=== PATIENT | male | born 1985 | race Caucasian/White ===

== ENCOUNTER 2019-12-08 14:04 | Emergency (ER) | payer MEDICARE, SELFPAY ==
[2019-12-08 14:08] VITALS: BP 136/90; PULSE 114; RESP 14; TEMP 36.7; O2SAT 97; BMI 28.8
--- NOTE | 2019-12-08 14:30 | XRR_ITS ---
PROCEDURE INFORMATION: Exam: XR Chest, 1 View Exam date and time: 12/08/2019 2:57 PM Age: 34 years old Clinical indication: Shortness of breath; Additional info: SOB TECHNIQUE: Imaging protocol: XR of the chest Views: 1 view. COMPARISON: No relevant prior studies available. FINDINGS: Lungs: Unremarkable. No consolidation. Pleural space: Unremarkable. No pleural effusion. No pneumothorax. Heart/Mediastinum: Unremarkable. No cardiomegaly. Bones/joints: A metallic right shoulder arthroplasty is present in good position. XR/XR chest 1V portable [id number] IMPRESSION: 1. No acute findings. 2. Metallic arthroplasty right shoulder in good position
--- NOTE | 2019-12-08 14:30 | XRR_ITS ---
PROCEDURE INFORMATION: Exam: XR Soft Tissue Neck Exam date and time: 12/08/2019 2:32 PM Age: 34 years old Clinical indication: Dyspnea / difficulty breathing; Additional info: SOB TECHNIQUE: Imaging protocol: XR of the soft tissues of the neck. COMPARISON: No relevant prior studies available. FINDINGS: Airway: Normal. No abnormal narrowing. Soft tissues: Normal. Normal epiglottis. Bones/joints: No acute bony abnormality. There is reversal of lordosis XR/XR soft tissue neck [id number] IMPRESSION: No acute findings.
--- NOTE | 2019-12-08 15:10 | W.ED.SOB ---
HPI - SOB/Dyspnea General: Chief Complaint: Airway/Esophagus Foreign Body Stated Complaint: potential allergic reaction, throat issues Time Seen by Provider: 12/08/19 14:12 History of Present Illness: HPI Narrative: 34-year-old male, reports trouble breathing, and feeling like his throat is tight for the last 4 hours or so. No known allergen exposure. He states he has been moving. He denies, though, burning debris, or significant dust exposure. He states he is better now than he was. He did not take any antihistamines prior to arrival. He did, though, use an inhaler MD elicited complaint: shortness of breath Pertinent past history: other Onset (ago): hour(s) (4) Context: other Timing: constant and improved Severity: moderate Exacerbating factors: nothing Relieving factors: nothing Known history of: asthma Associated symptoms: Deny abdominal pain, chest pain, dizziness, fever(s), nausea, palpitations or vomiting Review of Systems Const: Denies: fever(s) or chills Eyes: Denies: change in vision ENMT: Reports: odynophagia; Denies: uvular edema, swelling of lips/tongue, epistaxis or sinus pain Card: Denies: chest pain, palpitations or irregular heart rhythm Resp: Reports: dyspnea and non-productive cough; Denies: productive cough or wheezing GI: Denies: abdominal pain, nausea or vomiting : Denies: difficulty urinating or hematuria Musc: Denies: neck pain or back pain Skin/Breast: Reports: pruritus; Denies: rash or erythema Neuro: Denies: headache(s), dizziness or vertigo Psych: Denies: anxiety Physical Exam Const: GENERAL APPEARANCE: well developed ORIENTATION/CONSCIOUSNESS: Yes oriented to person, Yes oriented to place and Yes oriented to time HENMT: COMMON NORMALS: normocephalic, external ears normal and Normal external nose present HEAD & SCALP: normocephalic FACE & SINUS: face symmetric and erythema; no edema NOSE: Normal external nose present and No nasal discharge present EXTERNAL EAR: Yes external ears normal MOUTH: tongue normal TEETH & GINGIVA: no abnormal tooth and associated gingiva THROAT: uvula midline; no peritonsillar mass, uvula not laterally displaced and no uvular edema Eye: COMMON NORMALS: Equal, round and reactive pupils present, EOMs intact bilaterally and conjunctivae normal EYELID: eyelids normal CONJUNCTIVA: Yes conjunctivae normal PUPIL: Yes Equal, round and reactive pupils present Neck/C-Spine: COMMON NORMALS: full ROM GENERAL: No tracheal deviation Chest: COMMONS NORMALS: normal inspection of the chest CHEST: No tenderness Resp: COMMON NORMALS: clear to auscultation bilaterally EFFORT & INSPECTION: No tachypneic, No respiratory distress, No retractions, No uses accessory muscles and No tracheal deviation AUSCULTATION: clear to auscultation bilaterally, no rhonchi, no wheezes and lung sounds not diminished Cardio: COMMON NORMALS: regular rate and regular rhythm RATE: regular rate RHYTHM: regular rhythm HEART SOUNDS: no murmurs PERIPHERAL PULSES: radial pulses present GI: INSPECTION: No abdominal distension AUSCULTATION: No Hyperactive bowel sounds present and No Hypoactive bowel sounds present PALPATION: No Guarding due to palpation present (GI) Neuro: SENSORIUM/ORIENTATION: Yes oriented to person, Yes oriented to place and Yes oriented to time Psych: COMMON NORMALS: mental status grossly normal Skin: NARRATIVE SKIN EXAM: Mild facial redness. No swelling. No urticaria Course Vital Signs: Vital signs: Vital Signs Temperature 98.1 F 12/08/19 14:08 Pulse Rate 72 12/08/19 16:18 Respiratory Rate 18 12/08/19 16:18 Blood Pressure 133/64 12/08/19 16:18 Pulse Oximetry 98 12/08/19 16:18 MDM - SOB/Dyspnea MDM Narrative: Medical decision making narrative: Both itch and throat are significantly improved. Patient would like to go. His x-rays are normal. Lab Data: Labs: Lab Results 12/08/19 12/08/19 Range/Units 15:16 15:16 WBC 8.4 (4.0-10.0) 10^3/ uL RBC 3.97 L (4.1-5.3) 10^6/u L Hgb 13.8 (11.7-16.6) g/dL Hct 41.6 L (42.0-52.0) % MCV 104.8 H (80-94) fL MCH 34.8 H (28.0-34.0) pg MCHC 33.2 (30.0-36.0) g/dL RDW 12.5 (12.1-15.1) % Plt Count 207 (130-400) 10^3/c mm MPV 10.9 H (7.4-10.4) fL Neut % (Auto) 57.4 % Lymph % (Auto) 28.7 % [place] % (Auto) 8.5 % Eos % (Auto) 4.4 % Baso % (Auto) 0.8 % Neut # (Auto) 4.80 (1.8-7.7) 10^3/u L Lymph # (Auto) 2.4 (0.8-4.8) 10^3/u L [place] # (Auto) 0.7 (0.2-0.9) 10^3/u L Eos # (Auto) 0.4 (0.0-0.8) 10^3/u L Baso # (Auto) 0.1 (0.0-0.1) 10^3/u L Nucleated RBC % (a uto) 0 % Nucleated RBCs # 0.0 /100WBC Sodium Cancelled Potassium Cancelled Chloride Cancelled Carbon Dioxide Cancelled Anion Gap Cancelled BUN Cancelled Creatinine Cancelled GFR Calculation Cancelled Glucose Cancelled Calculated Osmolal ity Cancelled Calcium Cancelled Total Bilirubin Cancelled AST Cancelled ALT Cancelled Alkaline Phosphata se Cancelled Total Protein Cancelled Albumin Cancelled Globulin Cancelled Discharge Plan Discharge Patient Disposition: Home Clinical Impression: Allergic reaction Qualifiers: Encounter type: initial encounter Qualified Code(s): T78.40XA - Allergy, unspecified, initial encounter Condition: Stable Prescriptions: New Medrol (Joe) 4 mg tablets,dose pack See Rx Instructions .ROUTE .COMPLEX Qty: 21 RF: 0 Benadryl 25 mg capsule 25 mg PO Q6H PRN (Reason: allergic reaction) Qty: 30 RF: 0 No Action bupropion HCl 150 mg tablet sustained-release 12 hr See Rx Instructions .ROUTE .COMPLEX RF: 0 ibuprofen 800 mg Tablet 800 mg PO TID PRN (Reason: Pain) RF: 0 atenolol 100 mg tablet See Rx Instructions .ROUTE .COMPLEX RF: 0 levetiracetam 500 mg tablet 500 mg PO BID RF: 0 [place] 10-325 mg Tablet 2 tab PO QID MDD 8 tabs PRN (Reason: Pain) RF: 0 carbamazepine 400 mg tablet extended release 12 hr 400 mg PO BID RF: 0 buspirone 30 mg tablet See Rx Instructions .ROUTE .COMPLEX RF: 0 gabapentin 300 mg Capsule 900 mg PO TID RF: 0 hydrochlorothiazide 25 mg tablet See Rx Instructions .ROUTE .COMPLEX RF: 0 testosterone cypionate 200 mg/mL oil 200 mg IM Q30D RF: 0 ProAir HFA 90 mcg/actuation Hfa Aerosol Inhaler 2 puff INHALATION Q4H PRN (Reason: Shortness Of Breath) RF: 0 Discharge Orders: Discharge Order (Routine); Ordered 12/08/19 Ordered By: Kenneth Mitchell Discharge Diet: Advance as tolerated Discharge Activity: Increase activity as tolerated Patient Instructions: Allergic Reaction Activity Restrictions/Additional Instructions: Start blister pack of medicine tomorrow. Use Benadryl today, at least 2 more doses. Taper off the Benadryl as symptoms improve. Return for worsening shortness of breath, throat tightening, lip or tongue swelling, other concerning symptoms. Discharge Date/Time: 12/08/19 16:23 Coding Level of Care Code ED [employer] for [place] Fwd Exam Comprehensive
[2019-12-08 15:20] LABS: Basophils # 0.1 10^3/uL (0.0-0.1); Basophils % 0.8 %; Eosinophils # 0.4 10^3/uL (0.0-0.8); Eosinophils % 4.4 %; Hematocrit 41.6 % (42.0-52.0); Hemoglobin 13.8 g/dL (11.7-16.6); Lymphocytes # 2.4 10^3/uL (0.8-4.8); Lymphocytes % 28.7 %; Mean Corpuscular HGB Conc 33.2 g/dL (30.0-36.0); Mean Corpuscular Hemoglobin 34.8 pg (28.0-34.0); Mean Corpuscular Volume 104.8 fL (80-94); Mean Platelet Volume 10.9 fL (7.4-10.4); Monocytes # 0.7 10^3/uL (0.2-0.9); Monocytes % 8.5 %; Neutrophils % 57.4 %; Nucleated Red Blood Cells % 0 %; Platelet Count 207 10^3/cmm (130-400); Red Blood Count 3.97 10^6/uL (4.1-5.3); Red Cell Distribution Width 12.5 % (12.1-15.1); White Blood Count 8.4 10^3/uL (4.0-10.0)
[2019-12-08] MEDS: dexamethasone 4 mg/mL INJ 10 MG IVP (15:20)
[2019-12-08] MEDS: diphenhydrAMINE 50 mg/mL SDV 1mL IVP (15:20)
[2019-12-08] MEDS: famotidine 20 mg/2 mL INJ 40 MG IVP (15:21)
[2019-12-08 16:18] VITALS: BP 133/64; PULSE 72; RESP 18; O2SAT 98
== END 2019-12-08 16:23 | disposition home or self-care (01) ==
PROVIDERS: Emergency Provider Emergency Medicine
DX: T78.40XA Allergy, unspecified, initial encounter (principal)
CPT/HCPCS: 12345; 70360; 71045; 85025; 96374; 96375; 96376; 99281; 99283; J1100; J1200; J3490

== ENCOUNTER 2020-02-08 20:59 | Emergency (ER) | payer MEDICARE, SELFPAY ==
[2020-02-08 21:09] VITALS: BP 117/69; PULSE 97; RESP 20; TEMP 36.7; O2SAT 97; BMI 28.8
--- NOTE | 2020-02-08 21:37 | W.ED.COVID ---
HPI - COVID General: Chief Complaint: COVID symptoms Stated Complaint: redbumps all over/SOB/nausea/vomiting/muscle aches Time Seen by Provider: 02/08/20 21:36 Source: patient Mode of arrival: ambulatory Limitations: no limitations Triage information: No fever, cough or shortness of breath. No known COVID + exposure last 14 days History of Present Illness: HPI Narrative: 34-year-old male patient comes in today with increasing use of his inhaler with some wheezing. Patient also reports some itchiness to the skin with pustules. Patient noticed increasing number of pustules over the last couple days. Patient appears well. Patient appears no acute distress. COVID Results: SARS-CoV-2 Antigen (Rapid) Negative (Negative) 02/08/20 21:24 02/08/20 Review of Systems General: Reports: 10 or more systems reviewed and unremarkable except in HPI and below Skin/Breast: Reports: new lesions Physical Exam Const: COMMON NORMALS: no acute distress and patient oriented x3 GENERAL APPEARANCE: cooperative HENMT: COMMON NORMALS: normocephalic, TM's normal bilaterally and Normal external nose present HEAD & SCALP: normal to inspection and normocephalic NOSE: Normal external nose present TYMPANIC MEMBRANE: TM's normal bilaterally MOUTH: Normal oral and palatal mucosa present THROAT: posterior oropharynx normal Eye: GENERAL EYE: appearance normal, both eyes and all related structures Neck/C-Spine: COMMON NORMALS: full ROM Lymph: LYMPHATIC: no lymphadenopathy noted Chest: COMMONS NORMALS: normal inspection of the chest Resp: COMMON NORMALS: normal respiratory effort EFFORT & INSPECTION: Yes able to speak in complete sentences Cardio: COMMON NORMALS: regular rate and regular rhythm RATE: regular rate RHYTHM: regular rhythm GI: COMMON NORMALS: non-tender : COMMON NORMALS: Yes no CVA tenderness BLADDER/KIDNEY EXAM: Yes no CVA tenderness Back/Pelvis: COMMON NORMALS: no CVA tenderness and thoracic and lumbar spine normal to inspection Extremity: COMMON NORMALS: normal to inspection Neuro: COMMON NORMALS: patient oriented x3 and moves all extremities Psych: COMMON NORMALS: mental status grossly normal and cooperative Skin: NARRATIVE SKIN EXAM: Multiple pustular lesions to the upper body, and in different stages of healing. Course Vital Signs: Vital signs: Vital Signs Temperature 98.0 F 02/08/20 21:09 Pulse Rate 97 02/08/20 21:09 Respiratory Rate 17 02/08/20 21:52 Blood Pressure 138/99 02/08/20 21:52 Pulse Oximetry 97 02/08/20 21:52 MDM - COVID MDM Narrative: Medical decision making narrative: 34-year-old male comes in with cough and a rash. Patient has a follicular rash to the upper torso and back of neck. Lungs are clear to auscultation. Skin is warm and dry. Vital signs are normal. Differential diagnosis includes folliculitis, viral exanthem, exacerbation of asthma, COVID-19. COVID-19 test was negative. Reviewed exam with patient recommended treatment for folliculitis and treatment for exacerbation of asthma. Patient reported understanding agreed to plan. Lab Data: Labs: Lab Results 02/08/20 Range/Units 21:24 SARS-CoV-2 Ag (Rap id) Negative (Negative) COVID Results: SARS-CoV-2 Antigen (Rapid) Negative (Negative) 02/08/20 21:24 02/08/20 Discharge Plan Discharge Patient Disposition: Home Clinical Impression: Folliculitis Asthma exacerbation Qualifiers: Asthma severity: mild Asthma persistence: persistent Qualified Code(s): J45.31 - Mild persistent asthma with (acute) exacerbation Condition: Stable Prescriptions: New doxycycline hyclate 100 mg capsule 100 mg PO BID 10 Days Qty: 20 RF: 0 prednisone 20 mg tablet 20 mg PO BID 5 Days Qty: 10 RF: 0 Discontinued methylprednisolone [Medrol (Joe)] 4 mg tablets,dose pack See Rx Instructions .ROUTE .COMPLEX Qty: 21 RF: 0 No Action bupropion HCl 150 mg tablet sustained-release 12 hr See Rx Instructions .ROUTE .COMPLEX RF: 0 ibuprofen 800 mg Tablet 800 mg PO TID PRN (Reason: Pain) RF: 0 atenolol 100 mg tablet See Rx Instructions .ROUTE .COMPLEX RF: 0 levetiracetam 500 mg tablet 500 mg PO BID RF: 0 [place] 10-325 mg Tablet 2 tab PO QID MDD 8 tabs PRN (Reason: Pain) RF: 0 carbamazepine 400 mg tablet extended release 12 hr 400 mg PO BID RF: 0 buspirone 30 mg tablet See Rx Instructions .ROUTE .COMPLEX RF: 0 gabapentin 300 mg Capsule 900 mg PO TID RF: 0 hydrochlorothiazide 25 mg tablet See Rx Instructions .ROUTE .COMPLEX RF: 0 testosterone cypionate 200 mg/mL oil 200 mg IM Q30D RF: 0 ProAir HFA 90 mcg/actuation Hfa Aerosol Inhaler 2 puff INHALATION Q4H PRN (Reason: Shortness Of Breath) RF: 0 Benadryl 25 mg capsule 25 mg PO Q6H PRN (Reason: allergic reaction) Qty: 30 RF: 0 Discharge Orders: Discharge ED (Routine); Ordered 02/08/20 Ordered By: Lamonte Costa Discharge Diet: Usual diet Discharge Activity: Increase activity as tolerated Patient Instructions: Folliculitis (ED) Activity Restrictions/Additional Instructions: Take medication as directed. Drink plenty of water with medication. Follow-up with primary care for further treatment. Stop smoking. 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
[2020-02-08 21:48] VITALS: O2SAT 98
[2020-02-08 21:52] VITALS: BP 138/99; RESP 17; O2SAT 97
[2020-02-08 22:05] LABS: SARS Covid-2 Antigen Negative (Negative)
[2020-02-08] MEDS: doxycycline 100 mg Tablet PO (22:26)
[2020-02-08] MEDS: predniSONE 20 mg Tablet 40 MG PO (22:26)
[2020-02-08 22:28] VITALS: BP 149/108; PULSE 104; RESP 16; O2SAT 97
== END 2020-02-08 22:27 | disposition home or self-care (01) ==
PROVIDERS: Emergency Medicine; Emergency Provider Nurse Practitioner Family
DX: J45.31 Mild persistent asthma with (acute) exacerbation (principal); L73.9 Follicular disorder, unspecified
CPT/HCPCS: 12345; 87426; 99281; 99283; J7512

== ENCOUNTER 2020-07-05 09:56 | Inpatient (IN) | payer MEDICARE, SELFPAY ==
[2020-07-05 09:58] VITALS: BP 148/93; PULSE 81; RESP 15; TEMP 36.3; O2SAT 97; BMI 27.2
--- NOTE | 2020-07-05 10:23 | W.ED.PSYCH ---
HPI - Psych General: Chief Complaint: Psychiatric Symptoms Stated Complaint: 96 hour hold Time Seen by Provider: 07/05/20 10:00 History of Present Illness: HPI Narrative: 35-year-old male brought into the ER by [facility]. He was evidently held [facility] related to intoxication and his family wrote affidavits have been 96 remote cars sometime this morning. Affidavits do not timestamp but they are dated for today. Patient responds he is uncertain of what happened or why this family was trying to have him 96. He says he cannot recall any of the behaviors at the site when I mentioned a few of the things affidavits he states he has no recollection of it. He is very agreeable and cooperative. He denies having been on any medications for anxiety or depression or psychosis in the past. He denies previous hospitalizations for mental health related issues or previous suicide attempts. In the affidavit there is a mention that the patient has had increasing problems with his progressing since his son committed suicide in October.. MD complaint: suicidal ideation and altered mental status Onset (ago): month(s) Duration: intermittent Exacerbating factors: alcohol Context: recent alcohol abuse Associated psychiatric symptoms: suicidal ideation, homicidal ideation, auditory hallucinations and visual hallucinations Associated symptoms: Reports auditory hallucinations, visual hallucinations, delusions, homicidal ideation and suicidal ideation Treatments prior to arrival: placed on mental health hold Review of Systems Const: Denies: fever(s), chills, body aches, change in appetite, fatigue or malaise ENMT: Denies: throat pain, ear or mastoid pain, nasal discharge or nasal congestion Card: Denies: chest pain, edema, dyspnea on exertion or orthopnea Resp: Denies: dyspnea, productive cough or non-productive cough GI: Denies: abdominal pain, nausea, vomiting, hematemesis, coffee ground emesis, diarrhea, constipation, bloating, hematochezia or melena : Denies: flank pain, dysuria, urinary frequency or urinary urgency Skin/Breast: Denies: rash or pruritus Psych: Reports: visual hallucinations, auditory hallucinations, suicidal ideation, homicidal ideation and other (Positive review of symptoms regarding psych per affidavit) Physical Exam Const: COMMON NORMALS: no acute distress GENERAL APPEARANCE: cooperative and comfortable ORIENTATION/CONSCIOUSNESS: Yes awake, Yes oriented to person, Yes oriented to place and Yes oriented to time HENMT: COMMON NORMALS: normocephalic, atraumatic and hearing grossly normal bilaterally HEAD & SCALP: normocephalic and atraumatic Neck/C-Spine: COMMON NORMALS: no JVD Resp: COMMON NORMALS: normal respiratory effort, No retractions, No use of accessory muscles and clear to auscultation bilaterally AUSCULTATION: clear to auscultation bilaterally Cardio: COMMON NORMALS: no JVD, regular rate, regular rhythm and No murmurs present (Cardio) RATE: regular rate RHYTHM: regular rhythm Neuro: SENSORIUM/ORIENTATION: Yes oriented to person, Yes oriented to place and Yes oriented to time Psych: THOUGHT CONTENT: Yes delusions Skin: COMMON NORMALS: no rashes or lesions noted GENERAL SKIN EXAM: no rashes or lesions noted Course Vital Signs: Vital signs: Vital Signs Temperature 98.6 F 07/05/20 11:04 Pulse Rate 70 07/05/20 11:04 Respiratory Rate 17 07/05/20 11:04 Blood Pressure 154/102 07/05/20 11:04 Pulse Oximetry 99 07/05/20 11:04 MDM - Psych MDM Narrative: Medical decision making narrative: Slava with Dr. 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
[2020-07-05 10:56] LABS: Basophils % 0.6 %; Eosinophils # 0.1 10^3/uL (0.0-0.8); Hematocrit 46.4 % (42.0-52.0); Hemoglobin 15.4 g/dL (11.7-16.6); Lymphocytes # 1.4 10^3/uL (0.8-4.8); Lymphocytes % 20.3 %; Mean Corpuscular HGB Conc 33.2 g/dL (30.0-36.0); Mean Corpuscular Hemoglobin 33.6 pg (28.0-34.0); Mean Corpuscular Volume 101.3 fL (80-94); Mean Platelet Volume 10.3 fL (7.4-10.4); Monocytes # 0.4 10^3/uL (0.2-0.9); Monocytes % 5.3 %; Neutrophils # 5.08 10^3/uL (1.8-7.7); Neutrophils % 72.5 %; Nucleated Red Blood Cells % 0 %; Platelet Count 261 10^3/cmm (130-400); Red Blood Count 4.58 10^6/uL (4.1-5.3); Red Cell Distribution Width 12.2 % (12.1-15.1)
[2020-07-05 11:03] LABS: Add Urine Microscopic? NO; Charge for UA Resulting for Rev
[2020-07-05 11:04] VITALS: BP 154/102; PULSE 70; RESP 17; TEMP 37; O2SAT 99
[2020-07-05 11:10] LABS: Bilirubin Urine Neg (Negative); Blood Urine Neg (Negative); Glucose Urine UA Norm (Normal); Ketones Urine Negative (Negative); Leukocyte Esterase Urine Negative (Negative); Nitrate Urine Negative (Negative); Protein Urine Neg (Negative); Specific Gravity, Urine 1.015 (1.005-1.030); Urine Appearance Clear (CLEAR); Urine Color Yellow (Yellow); Urobilinogen Urine 1 mg/dL (Negative); pH Urine 5 (5-7)
[2020-07-05 11:11] LABS: Alanine Aminotransferase 14 U/L (0-41); Albumin Level 4.4 g/dL (3.5-5.2); Alkaline Phosphatase 93 IU/L (40-130); Aspartate Amino Transferase 20 U/L (0-40); Blood Urea Nitrogen 9 mg/dL (6-20); Calcium 8.9 mg/dL (8.5-10.5); Carbon Dioxide 26 mmol/L (22-29); Chloride 106 mmol/L (98-107); Globulin 2.8 g/dL (1.3-4.6); Glomerular Filtration Rate 108.8 mL/min (90-130); Glucose 88 mg/dL (65-115); Osmolality Calculated 292 mOsm/kg (285-295); Sodium 142 mmol/L (136-145); Total Bilirubin 0.5 mg/dL (0.15-1.2); Total Protein 7.2 g/dL (6.6-8.7)
[2020-07-05 11:23] LABS: Acetaminophen < 5.0 ug/mL (10-30); Salicylate < 0.3 mg/dL (3-10)
[2020-07-05 11:24] LABS: Anion Gap 14.4 (5-19); Potassium 4.4 mmol/L (3.5-5.1)
[2020-07-05] MEDS: nicotine 21 mg Patch 1 PATCH TRANSDERMA (12:24)
[2020-07-05 14:00] VITALS: BP 150/95; PULSE 73; RESP 16; TEMP 36.8; O2SAT 96
[2020-07-05 19:25] VITALS: BP 147/76; PULSE 74; RESP 18; TEMP 37.6; O2SAT 99
[2020-07-05 20:03] VITALS: PULSE 77; RESP 16; O2SAT 99
[2020-07-05] MEDS: nicotine 2 mg Gum BUCCAL (20:58)
[2020-07-06 06:00] VITALS: BP 151/121; PULSE 78; RESP 18; TEMP 36.6; O2SAT 100
--- NOTE | 2020-07-06 06:21 | PC.NURSE ---
Patient states that he normally has high blood pressure and usually takes Atenolol. Patient states that he hasn't filled it in awhile and cuts it in half because it knocks him out. Nurse was notified of patients high blood pressure.
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
[2020-07-06 07:42] VITALS: PULSE 78; RESP 18; O2SAT 98
[2020-07-06] MEDS: gabapentin 400 mg Capsule 1200 MG PO ×3 (08:06→20:23)
[2020-07-06] MEDS: nicotine 21 mg Patch 1 PATCH TRANSDERMA (08:06)
[2020-07-06 13:52] VITALS: BP 132/89; PULSE 77; RESP 16; TEMP 37; O2SAT 97
[2020-07-06 20:13] VITALS: BP 145/101; PULSE 104; RESP 17; TEMP 37; O2SAT 97
[2020-07-06] MEDS: nicotine 2 mg Gum BUCCAL (21:59)
[2020-07-07 06:00] VITALS: BP 146/80; PULSE 58; RESP 15; TEMP 36.7; O2SAT 99
[2020-07-07] MEDS: nicotine 21 mg Patch 1 PATCH TRANSDERMA (07:45)
[2020-07-07] MEDS: gabapentin 400 mg Capsule 1200 MG PO (08:42)
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
[2020-07-07 14:19] VITALS: BP 146/80; PULSE 58; RESP 15; TEMP 36.7; O2SAT 99
== END 2020-07-07 15:04 | disposition home or self-care (01) | DRG 882 ==
LOC: ER 10:17 → NP 10:35
PROVIDERS: Admitting Provider Psychiatry & Neurology Psychiatry; Emergency Provider Family Medicine; Visit Provider Psychiatry & Neurology Psychiatry
DX: F43.25 Adjustment disorder with mixed disturbance of emotions and conduct (principal); R45.851 Suicidal ideations; F10.10 Alcohol abuse, uncomplicated; F17.210 Nicotine dependence, cigarettes, uncomplicated; Z87.820 Personal history of traumatic brain injury; Z63.8 Other specified problems related to primary support group
CPT/HCPCS: 36415; 80053; 80307; 81003; 85025; 99285

== ENCOUNTER 2020-09-26 01:13 | Emergency (ER) | payer MEDICARE, SELFPAY ==
[2020-09-26 01:23] VITALS: BP 142/94; PULSE 113; RESP 20; TEMP 36.4; O2SAT 97; BMI 29.4
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
[2020-09-26] MEDS: ondansetron 2 mg/ML SDV 2 mL 4 MG IVP (02:04)
[2020-09-26 02:05] VITALS: RESP 18; O2SAT 100
[2020-09-26] MEDS: HYDROmorphone 1 mg/mL INJ 1 mL IVP ×2 (02:05→02:57)
[2020-09-26] MEDS: iohexol 300 mg/mL 100 mL Btl IV (02:23)
[2020-09-26 03:31] VITALS: O2SAT 98
== END 2020-09-26 03:31 | disposition home or self-care (01) ==
PROVIDERS: Emergency Provider Emergency Medicine
DX: S22.41XA Multiple fractures of ribs, right side, initial encounter for closed fracture (principal); S01.81XA Laceration without foreign body of other part of head, initial encounter; V86.55XA Driver of 3- or 4- wheeled all-terrain vehicle (ATV) injured in nontraffic accident, initial encounter
CPT/HCPCS: 12014; 70450; 70486; 71045; 71260; 72125; 73552; 74177; 96374; 96375; 96376; 99284; J1170; J2405; Q9967

== ENCOUNTER 2020-09-26 08:46 | Emergency (ER) | payer MEDICARE, SELFPAY ==
[2020-09-26 08:53] VITALS: BP 141/85; PULSE 112; RESP 19; TEMP 36.9; O2SAT 97
[2020-09-26 08:59] VITALS: BP 141/87; PULSE 110; RESP 19; TEMP 36.9; O2SAT 97
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
[2020-09-26 10:07] VITALS: RESP 18
[2020-09-26] MEDS: oxyCODONE 5 mg IR Tab/Cap PO (10:07)
[2020-09-26 10:29] VITALS: BP 133/96; PULSE 104; RESP 18; O2SAT 100
[2020-09-26 11:11] VITALS: BP 133/96; PULSE 104; RESP 18; O2SAT 100
== END 2020-09-26 11:12 | disposition home or self-care (01) ==
PROVIDERS: Emergency Provider Emergency Medicine
DX: Z04.1 Encounter for examination and observation following transport accident (principal); V86.55XA Driver of 3- or 4- wheeled all-terrain vehicle (ATV) injured in nontraffic accident, initial encounter
CPT/HCPCS: 74018; 76882; 99283

== ENCOUNTER 2020-10-30 18:29 | Emergency (ER) | payer MEDICARE, SELFPAY ==
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
[2020-10-30 19:14] VITALS: BP 154/105; PULSE 130; RESP 22; TEMP 37.1; O2SAT 99; BMI 27.9
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
[2020-10-30 20:14] VITALS: BP 146/92; PULSE 116; RESP 22; O2SAT 99
== END 2020-10-30 20:00 | disposition home or self-care (01) ==
PROVIDERS: Emergency Provider Emergency Medicine
DX: S09.8XXA Other specified injuries of head, initial encounter (principal); W19.XXXA Unspecified fall, initial encounter
CPT/HCPCS: 70450; 99282

== ENCOUNTER 2022-12-19 15:16 | Emergency (ER) | payer MEDICARE, SELFPAY ==
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
[2022-12-19 15:25] VITALS: BP 120/74; PULSE 85; O2SAT 97
== END 2022-12-19 15:45 | disposition home or self-care (01) ==
LOC: ER 15:26
PROVIDERS: Emergency Provider Emergency Medicine
DX: Z02.89 Encounter for other administrative examinations (principal)
CPT/HCPCS: 99281

== ENCOUNTER 2023-06-06 01:31 | Emergency (ER) | payer MEDICARE, MEDICAID, SELFPAY ==
[2023-06-06 01:38] VITALS: BP 149/102; PULSE 110; RESP 18; TEMP 36.7; O2SAT 100; BMI 26.6
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
[2023-06-06 02:04] VITALS: BP 144/95; RESP 18; O2SAT 98
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
[2023-06-06 03:14] VITALS: BP 144/95; PULSE 84; RESP 18; O2SAT 94
== END 2023-06-06 03:10 | disposition home or self-care (01) ==
PROVIDERS: Emergency Provider Emergency Medicine
DX: S01.81XA Laceration without foreign body of other part of head, initial encounter (principal); W20.8XXA Other cause of strike by thrown, projected or falling object, initial encounter; S00.03XA Contusion of scalp, initial encounter
CPT/HCPCS: 12011; 70450; 99284

== ENCOUNTER 2024-04-22 23:00 | Emergency (ER) | payer MEDICARE, SELFPAY ==
[2024-04-22 23:16] VITALS: BP 136/94; PULSE 79; RESP 14; TEMP 36.3; O2SAT 97; BMI 24.3
--- NOTE | 2024-04-22 23:34 | XRR_ITS ---
PROCEDURE INFORMATION: Exam: XR Chest Exam date and time: 04/22/2024 11:36 PM Age: 39 years old Clinical indication: Cough and fever; Additional info: Cough, fevers, congestion TECHNIQUE: Imaging protocol: Radiologic exam of the chest. Views: 1 view. COMPARISON: CT chest abdpel w/*[id number] 09/26/2020 2:18 AM FINDINGS: Lungs: No large focal consolidation. Pleural spaces: No large pleural effusion. No distinct pneumothorax. Heart/Mediastinum: Cardiomediastinal silhouette is midline and normal in size. Bones/joints: Status post right shoulder arthroplasty. Degenerative changes of the left shoulder. XR/XR chest 1V portable [id number] IMPRESSION: No large focal consolidation.
--- NOTE | 2024-04-22 23:46 | W.ED.URI ---
HPI - URI/Sore Throat General: Chief Complaint: Upper Respiratory Infection Stated Complaint: Cough\Fever Time Seen by Provider: 04/22/24 23:34 Source: patient Mode of arrival: ambulatory Limitations: no limitations History of Present Illness: Patient is a 39-year-old female presents to ED today stating that he has been sick for 3 weeks. Symptoms include fevers, cough, congestion, diarrhea, sore throat. He was initially diagnosed with pneumonia and placed on doxycycline. He states he finished this medication 3 to 4 days ago. He initially thought he was improving. He has had positive exposure with an individual with influenza A. Patient arrives in no acute distress with stable signs. MD elicited complaint: fever, cough, sore throat and nasal congestion Onset (ago): week(s) Consistency: constant Severity: moderate Description of mucous: clear Able to tolerate fluids by mouth: Yes Exacerbating factors: nothing Relieving factors: nothing Context: sick contacts (influenza A) Associated symptoms: Reports chills, congestion, cough, diarrhea, fever(s), nasal congestion and sore throat; Deny abdominal pain, chest pain, ear or mastoid pain, headache(s), nausea or vomiting Treatments prior to arrival: none Related Data Home Medications ?Medication ?Instructions ?Recorded ?Confirmed albuterol sulfate 90 mcg/actuation 2 puff inhalation Q4H PRN 12/08/19 09/26/20 aerosol inhaler (ProAir HFA) Shortness Of Breath ibuprofen 800 mg tablet 800 mg PO TID PRN Pain 12/08/19 09/26/20 gabapentin 600 mg tablet 1,200 mg PO TID 07/05/20 09/26/20 Kratom Powder 2 tsp PO DAILY 09/26/20 09/26/20 epinephrine 0.3 mg/0.3 mL See Rx Instructions .Route .COMPLEX 09/26/20 09/26/20 injection, auto-injector Previous Rx's ?Medication ?Instructions ?Recorded hydrocodone 5 mg-acetaminophen 325 1 tab PO Q6H PRN pain #14 tabs 09/26/20 mg tablet methocarbamol 750 mg tablet 750 mg PO Q6H PRN spasms #20 tabs 09/26/20 ketorolac 10 mg tablet 10 mg PO TID PRN pain #10 tabs 06/06/23 Allergies Allergy/AdvReac Type Severity Reaction Status Date / Time amoxicillin Allergy ALGY-Hives Verified 04/22/24 23:26 pregabalin (From Lyrica) Allergy ADR-Seizure Verified 04/22/24 23:20 tramadol Allergy ADR-Seizure Verified 04/22/24 23:20 Review of Systems Const: Reports: fever(s), chills, body aches and fatigue Eyes: Denies: eye discomfort, eye discharge or eye redness ENMT: Reports: throat pain, odynophagia, nasal discharge and nasal congestion; Denies: ear or mastoid pain Card: Denies: chest pain, palpitations, irregular heart rhythm, edema, swelling of feet/ankles, lightheadedness, syncope or pre-syncope Resp: Reports: non-productive cough and chest congestion; Denies: dyspnea or wheezing GI: Reports: diarrhea; Denies: abdominal pain, nausea, vomiting, rectal pain or hematochezia Musc: Denies: neck pain, back pain, extremity pain, extremity swelling or joint swelling Skin/Breast: Denies: rash Neuro: Denies: headache(s), numbness in extremities, weakness in extremities, sensory changes or dizziness Physical Exam Const: COMMON NORMALS: no acute distress, average body habitus, patient oriented x3, no limitations, healthy appearing, alert and well nourished GENERAL APPEARANCE: cooperative ORIENTATION/CONSCIOUSNESS: Yes awake, Yes oriented to person, Yes oriented to place and Yes oriented to time HENMT: COMMON NORMALS: normocephalic, atraumatic, hearing grossly normal bilaterally, external ears normal, EAC's normal, TM's normal bilaterally, Normal external nose present, Normal nasal mucous membranes and turbinates present, moist oral mucous membranes, oropharynx normal and gingiva normal HEAD & SCALP: normal to inspection, normocephalic and atraumatic FACE & SINUS: normal facial exam and sinuses nontender NOSE: Normal external nose present and Normal nasal mucous membranes and turbinates present EXTERNAL EAR: Yes external ears normal EXTERNAL AUDITORY CANAL: EAC's normal TYMPANIC MEMBRANE: TM's normal bilaterally MOUTH: Normal oral and palatal mucosa present and lip normal THROAT: posterior oropharynx normal and tonsils normal Eye: GENERAL EYE: appearance normal, both eyes and all related structures and normal light reflex DIRECT OPHTHALMOSCOPY: Yes normal light reflex Neck/C-Spine: COMMON NORMALS: no lymphadenopathy Resp: COMMON NORMALS: normal respiratory effort and clear to auscultation bilaterally AUSCULTATION: clear to auscultation bilaterally Cardio: COMMON NORMALS: regular rate and regular rhythm RATE: regular rate RHYTHM: regular rhythm GI: COMMON NORMALS: Normal to inspection, nondistended, normoactive bowel sounds present, Soft to palpation and non-tender PALPATION: Yes Soft to palpation Extremity: COMMON NORMALS: no clubbing, cyanosis or edema, no calf tenderness and no pedal edema GENERAL: Yes normal exam except as noted Neuro: COMMON NORMALS: patient oriented x3 SENSORIUM/ORIENTATION: Yes alert, Yes oriented to person, Yes oriented to place and Yes oriented to time Skin: COMMON NORMALS: no rashes or lesions noted GENERAL SKIN EXAM: no rashes or lesions noted Course Vital Signs: Vital signs: Vital Signs Temperature 98.0 F 04/22/24 23:55 Pulse Rate 79 04/22/24 23:55 Respiratory Rate 14 04/22/24 23:55 Blood Pressure 136/94 04/22/24 23:55 Pulse Oximetry 97 04/22/24 23:55 Oxygen Delivery Me thod Room Air 04/22/24 23:16 MDM - URI/Sore Throat Medical Decision Making Patient positive for influenza A. Discussed risks versus benefits of Tamiflu. Patient feels comfortable treating influenza symptoms conservatively. Return ED precautions discussed. His CXR today was normal. Differential Diagnosis Likely upper respiratory infection, viral infection and bronchitis Medical Records I reviewed the patient's medical records. Lab Data I reviewed the patient's lab results. Radiology Impressions Chest X-Ray 04/22/24 23:34 IMPRESSION: No large focal consolidation. Laboratory Results Influenza A (PCR) Positive (Negative) 04/22/24 22:53 Influenza Type B (PCR) Negative (Negative) 04/22/24 22:53 RSV (PCR) Negative (Negative) 04/22/24 22:53 SARS-CoV-2 (PCR) Negative (Negative) 04/22/24 22:53 All radiology interpretation(s) finalized by discharge Discharge Plan Discharge Patient Disposition: Home Clinical Impression: Influenza A Condition: Stable Prescriptions: No Action ibuprofen 800 mg Tablet 800 mg PO TID PRN (Reason: Pain) albuterol sulfate [ProAir HFA] 90 mcg/actuation Hfa Aerosol Inhaler 2 puff INHALATION Q4H PRN (Reason: Shortness Of Breath) gabapentin 600 mg tablet 1,200 mg PO TID hydrocodone-acetaminophen 5-325 mg tablet 1 tab PO Q6H PRN (Reason: pain) Qty: 14 0RF methocarbamol 750 mg tablet 750 mg PO Q6H PRN (Reason: spasms) Qty: 20 0RF Rx Instructions: SEE PHARMACY COMMENTS Kratom Powder 2 tsp PO DAILY epinephrine 0.3 mg/0.3 mL auto-injector See Rx Instructions .ROUTE .COMPLEX Rx Instructions: DIRECTED PRN ketorolac 10 mg tablet 10 mg PO TID PRN (Reason: pain) Qty: 10 0RF Discharge Orders: Discharge ED (Routine); Ordered 04/23/24 Ordered By: Karolina Dinh Referrals: Srinivas Menchaca DO [Primary Care Provider] - Patient Instructions: Influenza (DC) Print Language: Maltese Coding Level of Care Code ED Thread Grinder Tool for Frederick Shirley
[2024-04-22 23:55] VITALS: BP 136/94; PULSE 79; RESP 14; TEMP 36.7; O2SAT 97
[2024-04-23 00:35] LABS: Influenza A POSITIVE (Negative); Influenza B NEGATIVE (Negative); Respiratory Syncytial Virus Ce NEGATIVE (Negative); SARS-CoV-2 PCR NEGATIVE (Negative)
[2024-04-23 00:47] VITALS: BP 147/75; PULSE 77; O2SAT 95
== END 2024-04-23 00:48 | disposition home or self-care (01) ==
PROVIDERS: Emergency Provider Physician Assistant; PCP Family Medicine
DX: J10.1 Influenza due to other identified influenza virus with other respiratory manifestations (principal); Z11.52 Encounter for screening for COVID-19
CPT/HCPCS: 71045; 87637; 99283